=== PATIENT | male | born 1980 | race Caucasian/White ===

== ENCOUNTER 2023-09-06 01:28 | Emergency (ER) | payer MEDICAID ==
[~2023-09-06] VITALS: Ht 182.9 cm; Wt 81.6 kg
[2023-09-06 01:43] VITALS: O2SAT 99
[2023-09-06] MEDS ORDERED: TDAP DIPH,PERTUSS,TET VAC/PF 0.5 ML DISP.SYRIN IM ONE ×2 (02:00→02:02)
[2023-09-06] MEDS ORDERED: BACITRACIN ZINC OINT 15 GM TUBE ONE (02:53)
[2023-09-06] MEDS ORDERED: BACITRACIN ZINC OINT 15 GM TUBE TOP ONE (03:00)
== END 2023-09-06 03:07 | disposition home or self-care (01) ==
LOC: ER 01:46
DX: S60.032A Contusion of left middle finger without damage to nail, initial encounter (principal); W26.8XXA Contact with other sharp object(s), not elsewhere classified, initial encounter; Y93.89 Activity, other specified; Y92.89 Other specified places as the place of occurrence of the external cause; Y99.8 Other external cause status
CPT/HCPCS: 73140; 90715; A4606; A4663